=== PATIENT | female | born 1970 | race Caucasian/White ===

== ENCOUNTER 2020-09-12 00:40 | Outpatient (CLI) | payer OTHER, SELFPAY ==
[2020-09-12 18:51] LABS: SARS-CoV-2 RNA PCR Negative
== END 2020-09-12 00:41 | disposition home or self-care (01) ==
LOC: ANHCOVIDDT 00:40
PROVIDERS: PCP Family Medicine Sports Medicine; Visit Provider Internal Medicine Gastroenterology
DX: Z01.812 Encounter for preprocedural laboratory examination (principal); Z20.828 Contact with and (suspected) exposure to other viral communicable diseases
CPT/HCPCS: 87635; C9803; U0003

== ENCOUNTER 2020-09-15 01:13 | Day surgery (SDC) | payer OTHER, SELFPAY ==
[2020-09-07 10:13] VITALS: BMI 24.9
[2020-09-15] MEDS: LACTATED RINGERS 1,000 ML 150 ML IV CONT (09:02)
[2020-09-15 09:04] VITALS: BP 127/79; PULSE 105; RESP 18; TEMP 36.7; O2SAT 100; BMI 25.2
--- NOTE | 2020-09-15 09:36 | WPDANESEPPF ---
Anes - Initial Pre Proc Eval Procedure: Operation Date: 09/15/20 10:00 Proposed Procedures p Screening Colonoscopy - Kobe López MD Date/Time: 09/15/20 09:36 Surgeon: Kobe López MD Pre Op Diagnosis: Neoplasm Screening Patient Data Age: 50 Gender: F Height: 5 ft 5 in Weight: 68.9 kg Last Vital Signs Temp 98.1 F 09/15/20 09:04 Pulse 105 H 09/15/20 09:04 Resp 18 09/15/20 09:04 BP 127/79 09/15/20 09:04 Pulse Ox 100 09/15/20 09:04 Allergies Allergy/AdvReac Type Severity Reaction Status Date / Time erythromycin base Allergy Severe Chest Pain Verified 09/07/20 10:11 Gadolinium-Containing Allergy Intermediate Itching Verified 09/07/20 10:11 Contrast Medi morphine AdvReac Unknown GI UPSET Verified 09/07/20 10:11 ERYTHROMYCIN LACTOBIONATE Allergy Severe CHEST Uncoded 09/07/20 10:11 TIGHTNESS, SOB MRI DYE Allergy Severe ITCHEY, Uncoded 09/07/20 10:11 RASH Home Medications Medication Instructions Recorded Confirmed Type peg 3350-electrolytes 236 240 ml PO Q10M #4000 ml 07/31/20 Rx gram-22.74 gram-6.74 gram-5.86 gram solution amitriptyline 10 mg PO HS 09/07/20 09/07/20 History cholecalciferol (vitamin D3) 10 mcg PO DAILY 09/07/20 09/07/20 History [Vitamin D3] rizatriptan 10 mg PO PRN PRN 09/07/20 09/07/20 History sumatriptan succinate 100 mg PO PRN PRN 09/07/20 09/07/20 History Patient hx anesthesia problems: none Family hx anesthesia problems: none PMFSH Past Medical History Medical History (Updated 09/15/20 @ 09:36 by Edwin Carter MD) Migraine Family History Family History (System 08/07/19 @ 13:32 by Gabrielle Choudhary) Father Diabetes mellitus Mother Diabetes mellitus Social History Social History (System 08/07/19 @ 13:32 by Gabrielle Choudhary) Smoking status: Never smoker Alcohol intake: current Substance use: never Substance use type: does not use Spiritual care concerns: No Anes - Eval Final PreProcedure Day of Procedure 09/15/20 09:36 Patient weight: normal Heart: regular rate and rhythm Lungs: clear to auscultation Airway: Mallampati scale class II Neurological: alert and oriented Last oral intake: >/= 8 hours ASA classification: II Emergent: no Anesthetic plan: proceed Anesthesia type and monitoring: general and standard monitoring Informed Consent: The patient's anesthetic plan and its attendant risks and benefits were discussed with the patient/family/POA. Questions were solicited and answers provided to the satisfaction of the patient/family/POA.
--- NOTE | 2020-09-15 09:45 | PM.HPGS ---
History of Present Illness History of Present Illness Consent: Risks, benefits, and alternatives have been discussed and questions answered. Patient agrees to proceed with procedure. Chief complaint: Neoplasm Screening Narrative: Kaitlin Robbins is a 50 year old female here for first screening colonoscopy. Grandparent and uncle with colon cancer. Review of Systems Constitutional: Constitutional: Denies headache(s) and Denies weakness Eyes: Eyes: Denies blurry vision ENT: Reports Normal hearing present, Denies headache(s) and Denies neck pain Cardiovascular: Cardiovascular: Denies chest pain and Denies dyspnea Respiratory: Respiratory: Denies dyspnea Gastrointestinal: Gastrointestinal: Reports no additional gastrointestinal complaints Genitourinary: Genitourinary: Denies dysuria Musculoskeletal: Musculoskeletal: Denies neck pain Integumentary/Breasts: Skin/Breast: Denies dry skin Neurologic: Reports Normal hearing present, Denies headache(s) and Denies weakness Psychiatric: Psychiatric: Denies anxiety Endocrine: Endocrine: Denies change in body appearance Hematologic/Lymphatic: Hematologic/Lymphatic: Denies easy bleeding Allergic/Immunologic: Allergic/Immunologic: Denies urticaria PMF Past Medical History Medical History (Updated 09/15/20 @ 09:46 by Kobe López MD) Colon cancer screening Migraine Family History Family History (System 08/07/19 @ 13:32 by Gabrielle Choudhary) Father Diabetes mellitus Mother Diabetes mellitus Social History Social History (System 08/07/19 @ 13:32 by Gabrielle Choudhary) Smoking status: Never smoker Alcohol intake: current Substance use: never Substance use type: does not use Spiritual care concerns: No Meds Home Medications and Allergies Home Medications Medication Instructions Recorded Confirmed Type peg 3350-electrolytes 236 240 ml PO Q10M #4000 ml 07/31/20 Rx gram-22.74 gram-6.74 gram-5.86 gram solution amitriptyline 10 mg PO HS 09/07/20 09/07/20 History cholecalciferol (vitamin D3) 10 mcg PO DAILY 09/07/20 09/07/20 History [Vitamin D3] rizatriptan 10 mg PO PRN PRN 09/07/20 09/07/20 History sumatriptan succinate 100 mg PO PRN PRN 09/07/20 09/07/20 History Allergies Allergy/AdvReac Type Severity Reaction Status Date / Time erythromycin base Allergy Severe Chest Pain Verified 09/07/20 10:11 Gadolinium-Containing Allergy Intermediate Itching Verified 09/07/20 10:11 Contrast Medi morphine AdvReac Unknown GI UPSET Verified 09/07/20 10:11 ERYTHROMYCIN LACTOBIONATE Allergy Severe CHEST Uncoded 09/07/20 10:11 TIGHTNESS, SOB MRI DYE Allergy Severe ITCHEY, Uncoded 09/07/20 10:11 RASH Vital Signs Vital Signs - 24 hr 09/15/20 09:04 Temperature 98.1 F Pulse Rate 105 H Respiratory Rate 18 Blood Pressure 127/79 Pulse Oximetry 100 Exam Const: General: comfortable and no acute distress HENMT: General nose exam: Normal nares present Eyes: General: appearance normal, both eyes and all related structures Neck: Neck: no JVD Resp: Auscultation: clear to auscultation bilaterally Cardio: Rate: regular rate Rhythm: regular rhythm GI: Inspection: non-distended GI Palp: Yes Soft to palpation Skin: General skin exam: normal color Neuro: General: gait normal Speech: normal speech Extrem: General: normal to inspection Psych: Mental Status: mental status grossly normal Assessment and Plan Assessment and plan (1) Colon cancer screening: Code(s): Z12.11 - Encounter for screening for malignant neoplasm of colon Status: Acute Assessment and Plan: will proceed with colonoscopy
[2020-09-15 10:11] VITALS: BP 143/78; PULSE 91; RESP 16; O2SAT 98
[2020-09-15 10:21] VITALS: BP 137/84; PULSE 88; RESP 18; O2SAT 99
[2020-09-15 10:31] VITALS: BP 130/79; PULSE 76; RESP 20; O2SAT 100
== END 2020-09-15 10:47 | disposition home or self-care (01) ==
PROVIDERS: PCP Family Medicine Sports Medicine; Visit Provider Internal Medicine Gastroenterology
PROC: 0DJD8ZZ Inspection of Lower Intestinal Tract, Via Natural or Artificial Opening Endoscopic (ICD-10-PCS; CPT 45378; principal; 2020-09-15 10:00)
DX: G43.909 Migraine, unspecified, not intractable, without status migrainosus (principal); Z80.0 Family history of malignant neoplasm of digestive organs; D12.0 Benign neoplasm of cecum; K63.5 Polyp of colon; K64.8 Other hemorrhoids
CPT/HCPCS: 45380; 45385; 87635; 88305; C9803; J2704; J7120; U0003

== ENCOUNTER 2020-10-18 15:05 | Outpatient (CLI) | payer OTHER, SELFPAY ==
--- NOTE | ~2020-10-18 | MM_ITS ---
EXAMINATION: MM screening [facility] BI w barbara HISTORY: Screening TECHNIQUE: Craniocaudal and mediolateral oblique 3-D tomosynthesis images were obtained and synthetic 2-D images were generated. CAD analysis was submitted and interpreted. COMPARISON: Comparison to multiple prior studies sequentially, with oldest reviewed study dated 07/07. BREAST PARENCHYMAL COMPOSITION: The breasts are heterogenously dense, which may obscure small masses. FINDINGS: There is no evidence of suspicious mass, calcification, or architectural distortion to sugg est malignancy in either breast. There has been no suspicious interval change. IMPRESSION: 1. No mammographic evidence of malignancy. 2. Recommend routine screening mammography in one year. BI-RADS Category 1: Negative Reviewed, dictated and finalized at location A. RONMENTAL STUDIES PROGRAM DIRECTOR
== END 2020-10-18 15:06 | disposition home or self-care (01) ==
LOC: ANHIMG 15:08
PROVIDERS: PCP Family Medicine Sports Medicine
DX: Z12.31 Encounter for screening mammogram for malignant neoplasm of breast (principal)
CPT/HCPCS: 77063; 77067

== ENCOUNTER 2021-09-08 23:47 | Emergency (ER) | payer OTHER, SELFPAY ==
--- NOTE | ~2021-09-08 | XR_ITS ---
EXAMINATION: XR chest 1V portable DATE: 09/09/2021 00:05 INDICATION: Sudden onset epigastric pain radiating to the back TECHNIQUE: frontal view of the chest was obtained. COMPARISON: None FINDINGS: The lungs are clear with no focal airspace opacities, pulmonary edema, pleural effusion or pneumothor ax. The cardiomediastinal silhouette is normal. Visualized bones and soft tissues are unremarkable. IMPRESSION: 1. Normal chest radiograph. Reviewed, dictated and finalized at location A. TAL MEDIA ANALYST IMPRESSION: 1. Normal chest radiograph.
[2021-09-08 23:43] VITALS: BP 155/63; PULSE 101; RESP 22; TEMP 35.9; O2SAT 100
[2021-09-08 23:50] VITALS: PULSE 92; RESP 14; O2SAT 100
--- NOTE | 2021-09-08 23:50 | ECG_ITS ---
Measurements Intervals [place] Rate: 95 P: 54 WY: 126 QRS: 52 QRSD: 92 T: -32 QT: 255 QTc: 322 Interpretive Statements SINUS RHYTHM NONSPECIFIC ST & T-WAVE ABNORMALITY- INF/LAT LEADS BASELINE ARTIFACT- I, II, AVR, V3 BORDERLINE ECG Electronically Signed On 09-09-2021 7:07:01 MICA WASHER GLUER by Darnell Sims D.O.
[2021-09-09] VITALS (17 sets, daily range): BP systolic 138–158; BP diastolic 69–89; PULSE 81–100; RESP 14–20; TEMP 36.4; O2SAT 100
[2021-09-09 00:24] LABS: Basophils Percent Auto 0.6 % (0.2-1.2); Eosinophils Absolute Auto 0.3 K/mm3 (0-0.3); Eosinophils Percent Auto 3.6 % (0-4.4); Hematocrit 36.2 % (37.0-47.0); Hemoglobin 13.1 g/dL (12.0-15.0); Immature Granulocyte Absolute 0.02 K/mm3 (0.00-0.031); Immature Granulocyte Percent A 0.3 % (0-0.5); Lymphocytes Absolute Auto 2.47 K/mm3 (0.9-3.2); Lymphocytes Percent Auto 35.9 % (18.3-44.2); Mean Corpuscular HGB Conc 36.2 g/dl (32-36); Mean Corpuscular Volume 91.2 fl (80-100); Mean Platelet Volume 9.3 fl (7.4-10.4); Monocytes Absolute Auto 0.6 K/mm3 (0.1-0.6); Neutrophils Absolute Auto 3.5 K/mm3 (1.3-6.7); Neutrophils Percent Auto 50.6 % (45.5-73.1); Platelet Count Result 290 k/mm3 (150-375); Red Blood Count 3.97 M/mm3 (4.2-5.4); Red Cell Distribution Width 11.5 % (11.5-14.5); White Blood Count 6.9 K/mm3 (4.5-10.0)
[2021-09-09 00:39] LABS: INR 0.9; Prothrombin Time 11.7 Seconds (11.1-14.7)
[2021-09-09 00:42] LABS: Alanine Aminotransferase 63 U/L (4-35); Albumin Level 4.7 g/dL (3.5-5.1); Alkaline Phosphatase 68 U/L (38-126); Anion Gap 9 mmol/L (8-16); Aspartate Amino Transferase 161 U/L (14-36); Bilirubin,Total 0.5 mg/dL (0.2-1.3); Blood Urea Nitrogen 16 mg/dL (7-17); Calcium 9.6 mg/dL (8.4-10.2); Carbon Dioxide 22 mmol/L (22-30); Chloride 103 mmol/L (98-107); Estimated CRCL calculation 75 ml/min; Estimated Glomerular Filt Rate > 60; Glucose 102 mg/dL (65-110); Lipase 118 U/L (23-300); Sodium 134 mmol/L (137-145)
[2021-09-09 00:54] LABS: Troponin I < 0.012 ng/mL (0.000-0.034)
[2021-09-09 00:58] LABS: Beta HCG Quantitative < 2.39 mIU/ML
[2021-09-09] MEDS: SODIUM CHLORIDE 0.9% IV 1,000 ML 999 ML IV CONT (00:59)
[2021-09-09] MEDS: MAG HYDROX/AL HYDROX/SIMETH 30 ML UDC PO (01:00)
[2021-09-09] MEDS: LIDOCAINE HCL 2% VISC SOLN 15 ML UDC 20 ML PO (01:00)
--- NOTE | 2021-09-09 01:02 | ED.CHESTPAIN ---
HPI - Chest Pain General Chief Complaint: Chest Pain Stated Complaint: epigastric pain Time Seen by Provider: 09/09/21 00:17 Source: patient History of Present Illness HPI narrative: Patient presents with epigastric pain. Patient reports she went to bed around 10:00 woke up around 11 with a sharp stabbing pain in her epigastric area. The pain was constant there are no clear aggravating or alleviating factors there is no radiation. Given the intensity she called EMS and came to the ER for evaluation. On arrival to the ER reports her symptoms are improving. She denies have to take any medications at home to alleviate her symptoms. Neeta primary concern is that her family has a significant cardiac history. She denies any signet past medical history she denies any smoking denies any recent hospitalizations denies any prior history of thrombus. She denies any nausea vomiting or diaphoresis. The pain is gone away she feels like her stomach is unsettled Related Data Home Medications Medication Instructions Recorded Confirmed amitriptyline 10 mg PO HS 09/07/20 09/07/20 cholecalciferol (vitamin D3) 10 mcg PO DAILY 09/07/20 09/07/20 [Vitamin D3] rizatriptan 10 mg PO PRN PRN 09/07/20 09/07/20 sumatriptan succinate 100 mg PO PRN PRN 09/07/20 09/07/20 Allergies Allergy/AdvReac Type Severity Reaction Status Date / Time erythromycin base Allergy Severe Chest Pain Verified 09/08/21 23:48 Gadolinium-Containing Allergy Intermediate Itching Verified 09/08/21 23:48 Contrast Medi morphine AdvReac Unknown GI UPSET Verified 09/08/21 23:48 ERYTHROMYCIN LACTOBIONATE Allergy Severe CHEST Uncoded 09/07/20 10:11 TIGHTNESS, SOB MRI DYE Allergy Severe ITCHEY, Uncoded 09/07/20 10:11 RASH Review of Systems Review of Systems: CONSTITUTIONAL: Denies fever, chills, or sweats. EYES: Denies visual changes, redness, or discharge. ENT: Denies rhinorrhea, congestion, sore throat, or otalgia. CARDIOVASCULAR: Denies palpitations, or edema. RESPIRATORY: Denies cough or dyspnea. GASTROINTESTINAL: Denies nausea, vomiting, or diarrhea. GENITOURINARY: Denies dysuria or hematuria. SKIN: Denies rash or itching. MUSCULOSKELETAL: Denies back pain, joint pain, or myalgia. NEUROLOGIC: Denies headache, numbness, dizziness, or weakness. PSYCHIATRIC: Denies anxiety or depression. [facility] Past Medical History Medical History Colon cancer screening Migraine Family History Family History Father Diabetes mellitus Mother Diabetes mellitus Social History Social History Smoking status: Never smoker Alcohol intake: current Substance use: never Substance use type: does not use Spiritual care concerns: No Exam Narrative: GENERAL: Well-appearing, well-nourished, and in no acute distress. HEAD: Normocephalic, atraumatic. EYES: PERRLA and EOMI. ENT: Nares clear, no rhinorrhea or epistaxis. Mucous membranes moist. NECK: Supple. No masses. No JVD CHEST: Clear to auscultation. No respiratory distress. No wheezes rales or rhonchi HEART: Regular rate and rhythm. No murmur heard. Normal peripheral pulses. ABDOMEN: Soft, nontender, nondistended, normal active bowel sounds. EXTREMITIES: Normal range of motion. No edema. SKIN: Warm, dry, no rash. NEURO: No focal deficits. Alert and oriented x3. PSYCH: Normal mood and affect. Course Reevaluation(s) Reevaluation #1: Patient reports large improvement in symptoms after GI cocktail. Results and plan reviewed with patient. Patient comfortable with outpatient plan. Date: 09/09/21 Time: 03:45 Vital Signs Vital signs: Vital Signs Temperature 35.9 C L 09/08/21 23:43 Pulse Rate 101 H 09/08/21 23:43 Respiratory Rate 22 H 09/08/21 23:43 Blood Pressure 155/63 H 09/08/21 23:43 Pulse Oximetry 100 09/08/21 23:43 [place]
[2021-09-09] MEDS: POTASSIUM CHLORIDE 20 MEQ PACKET (FOR LIQUID) 40 MEQ PO (01:30)
--- NOTE | 2021-09-09 01:34 | PC.NURSE ---
Patient states relief of pain with GI cocktail.
[2021-09-09 03:16] LABS: Troponin I < 0.012 ng/mL (0.000-0.034)
== END 2021-09-09 04:05 | disposition home or self-care (01) ==
PROVIDERS: General Practice; Emergency Provider Emergency Medicine; PCP Family Medicine Sports Medicine
DX: R10.13 Epigastric pain (principal); R94.31 Abnormal electrocardiogram [ECG] [EKG]
CPT/HCPCS: 36415; 71045; 80053; 81025; 83690; 84484; 84702; 85025; 85610; 85730; 93005; 96360; 99284; A9270; J7030

== ENCOUNTER 2021-11-07 12:10 | Outpatient (CLI) | payer OTHER, SELFPAY ==
--- NOTE | ~2021-11-07 | MM_ITS ---
EXAMINATION: MM screening [facility] BI w barbara HISTORY: Screening mammogram TECHNIQUE: Craniocaudal and mediolateral oblique 3-D tomosynthesis images were obtained and synthetic 2-D images were generated. CAD analysis was submitted and interpreted. COMPARISON: 10/18/2020, 09/21/2019, 09/08/2018 BREAST PARENCHYMAL COMPOSITION: The breasts are extremely dense, which lowers the sensitivity of mamm ography. FINDINGS: There is no evidence of suspicious mass, calcification, or architectural distortion to sugg est malignancy in either breast. There has been no suspicious interval change. IMPRESSION: 1. No mammographic evidence of malignancy. 2. Recommend routine screening mammography in one year. BI-RADS Category 1: Negative Reviewed, dictated and finalized at location A. AL SCHEDULING COORDINATOR
== END 2021-11-07 12:11 | disposition home or self-care (01) ==
PROVIDERS: PCP Family Medicine Sports Medicine
DX: Z12.31 Encounter for screening mammogram for malignant neoplasm of breast (principal)
CPT/HCPCS: 77063; 77067

== ENCOUNTER 2023-01-22 15:38 | Outpatient (CLI) | payer OTHER, SELFPAY ==
--- NOTE | ~2023-01-22 | MM_ITS ---
EXAMINATION: MM screening [facility] BI w barbara HISTORY: Screening mammogram TECHNIQUE: Craniocaudal and mediolateral oblique 3-D tomosynthesis images were obtained and synthetic 2-D images were generated. CAD analysis was submitted and interpreted. COMPARISON: 11/07/2021, 10/18/2020, 09/21/2019 BREAST PARENCHYMAL COMPOSITION:The breasts are heterogeneously dense, which may obscure small masses. FINDINGS: No suspicious mass, calcification, or architectural distortion are identified in either marion ast to suggest malignancy. There has been no suspicious interval change. IMPRESSION: No mammographic evidence of malignancy. Recommend routine screening mammography in one year. BI-RADS Category 1: Negative Reviewed, dictated and finalized at location .
== END 2023-01-22 15:39 | disposition home or self-care (01) ==
LOC: ANHIMG 15:39
PROVIDERS: PCP Family Medicine Sports Medicine; Visit Provider Obstetrics & Gynecology
DX: Z12.31 Encounter for screening mammogram for malignant neoplasm of breast (principal)
CPT/HCPCS: 77063; 77067

== ENCOUNTER 2024-03-16 08:52 | Outpatient (CLI) | payer OTHER, SELFPAY ==
--- NOTE | ~2024-03-16 | MM_ITS ---
EXAMINATION: MM screening [facility] w barbara HISTORY: Screening TECHNIQUE: Craniocaudal and mediolateral oblique 3-D tomosynthesis images were obtained and synthetic 2-D images were generated. CAD analysis was submitted and interpreted. COMPARISON: Comparison to multiple prior studies sequentially, with oldest reviewed study dated 08/08. BREAST PARENCHYMAL COMPOSITION: Dense: The breasts are extremely dense, which lowers the sensitivity of mammography. FINDINGS: There is no evidence of suspicious mass, calcification, or architectural distortion to sugg est malignancy in either breast. There has been no suspicious interval change. IMPRESSION: 1. No mammographic evidence of malignancy. 2. Recommend routine screening mammography in one year. BI-RADS Category 1: Negative Reviewed, dictated and finalized at location B.
== END 2024-03-16 08:53 | disposition home or self-care (01) ==
PROVIDERS: PCP Family Medicine Sports Medicine; Visit Provider Obstetrics & Gynecology
DX: Z12.31 Encounter for screening mammogram for malignant neoplasm of breast (principal)
CPT/HCPCS: 77063; 77067

== ENCOUNTER 2025-04-20 09:41 | Outpatient (CLI) | payer OTHER, SELFPAY ==
--- NOTE | ~2025-04-20 | MM_ITS ---
EXAMINATION: MM screening [facility] BI w barbara HISTORY: Screening TECHNIQUE: Craniocaudal and mediolateral oblique 3-D tomosynthesis images were obtained and synthetic 2-D images were generated. CAD analysis was submitted and interpreted. COMPARISON: Comparison to multiple prior studies sequentially, with oldest reviewed study dated 01/2018. BREAST PARENCHYMAL COMPOSITION: Dense: The breasts are extremely dense, which lowers the sensitivity of mammography. FINDINGS: There is no evidence of suspicious mass, calcification, or architectural distortion to sugg est malignancy in either breast. There has been no suspicious interval change. IMPRESSION: 1. No mammographic evidence of malignancy. 2. Recommend routine screening mammography in one year. BI-RADS Category 1: Negative Reviewed, dictated and finalized at location B.
== END 2025-04-20 09:42 | disposition home or self-care (01) ==
LOC: ANHIMG 09:46
PROVIDERS: PCP Family Medicine; Visit Provider Obstetrics & Gynecology
DX: Z12.31 Encounter for screening mammogram for malignant neoplasm of breast (principal)
CPT/HCPCS: 77063; 77067

== ENCOUNTER 2025-09-05 14:30 | Outpatient (CLI) | payer OTHER, SELFPAY ==
--- OUTSIDE RECORDS SUMMARY | 2025-09-05 15:27 | XMS_ITS | Clinical Summary ---
Author Organization [facility] Address [address] [place] [address] Care Team Providers Care Farm Equipment Mechanic Name Role Phone Sharif Campos MD Primary Care Provider [phone] Source Comments [facility],non-owned Affiliates and Associated Physician Practices is amultiple site organization consisting of ambulatory clinics and hospital sitesin [place], [place], [place] and [place]. This disclosure is being madepursuant to the Care Everywhere program and may not contain all information available regarding this patient. Last updated 18.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 Gender Identity Not on file Sexual Orientation Not on file Plan of Treatment Health Maintenance Due Date Last Done Comments COLOGUARD (AGES 45-75) - COL ON CA SCREENING 1972 COLON MONITORING 1972 COLONOSCOPY - COLON CA SCREENING 1972 CT COLONOGRAPHY - COLON CA SCREENING 1972 Colorectal Cancer Screening 1972 FIT - COLON CA SCREENING 1972 FLEX SIG - COLON CA SCREENING 1972 LIPID TESTING 1972 MAMMOGRAM 1972 HIV SCREENING 1987 HEPATITIS C SCREENING 05/02/1990 DTAP/TDAP/TD VACCINES (1 - Tdap) 1991 HEPATITIS B VACCINE (1 of 3 - 19+ 3-dose series) 1991 Cervical Cancer Screening 1993 PAP SMEAR 1993 PAP with HPV 2002 PNEUMOCOCCAL VACCINE 50+ (1 of 1 - PCV) 2022 ZOSTER VACCINE (1 of 2) 2022 DEPRESSION SCREENING 10/06/2024 COVID-19 VACCINE (1 - 2024-2 6 season) 2025 INFLUENZA VACCINE (#1) 2025 HIB VACCINE Aged Out No longer eligi ble based on patient's age to complete this topic HPV VACCINE Aged Out No longer eligi ble based on patient's age to complete this topic MENINGOCOCCAL (Group B) VACC INE SHARED DECISION-MAKING Aged Out No longer eligibl e based on patient's age to complete this topic MENINGOCOCCAL GROUPS A/C/Y/W VACCINE Aged Out No longer eligible b ased on patient's age to complete this topic Insurance [address]YLE SMITH, [facility] [facility] Care Teams Farm Equipment Mechanic Relationship Specialty Start Date End Date Sharif Campos MD [facility] [place] [address] PCP - General 08/09/19
--- OUTSIDE RECORDS SUMMARY | 2025-09-05 15:27 | XMS_ITS | Encounter Summary ---
Author Organization [facility] Address [address] [place] [address] Care Team Providers Care Passenger Brakeman Name Role Phone Sharif Campos MD Primary Care Provider [phone] Encounter Details Date Type Department Care Team (Late st Contact Info) Description 06/25/2023 Lab Requisition [facility] - Derm[facility] Lab [address] [place] [id number] Sabina Simmons MD [address] [facility] [place] [address] Social History Tobacco Use Types Packs/Day Years Used Date Smoking Tobacco: Never Assessed Comments Unknown Sex and Gender Information Value Date Recorded Sex Assigned at Not on file 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 Gender Identity Not on file Sexual Orientation Not on file documented as of this encounter Plan of Treatment Not on file documented as of this encounter Procedures Procedure Name Priority Date/Time Associated Diagnosis Comments DERMATOPATHOLOGY Routine 06/25/2023 3:32 PM CDT documented in this encounter Results * DERMATOPATHOLOGY (06/25/2023 3:32 PM CDT) Case Report Dermatopathology Report Case: [id number] Authorizing Provider: Sabina Simmons MD Collected: 06/25/2023 03:32 PM Ordering Location: [facility] Received: 06/26/2023 12:57 PM Pathologist: Miriam Bassett MD Specimen: Skin, left thigh 09/25/202 3 1:12 PM CDT DERMATOPATHOLOGY LABORATORY Final Diagnosis Specimen A. SKIN, left thigh: PROMINENT BASILAR PIGMENTATION CONSISTENT WITH SOLAR LENTIGO (L81.4) 3 1:12 PM CDT DERMATOPATHOLOGY LABORATORY at 1312 CDT Clinical History R/O Melanoma, SK. Irregular Border Brown Papule 3 1:12 PM CDT DERMATOPATHOLOGY LABORATORY Gross Description Specimen A: Received is one formalin filled container labeled with the patient's name and designated left thigh. The specimen consists of a shave biopsy measuring 6x4x1 mm. Jar 0. 3 1:12 PM CDT DERMATOPATHOLOGY LABORATORY Microscopic Description Specimen A. SKIN, left thigh: Sections show prominent pigmentation of the basal layer without a prominent increase in melanocytes. Some of the basilar keratinocytes are slightly enlarged but uniform. The rete ridges are not elongated. 3 1:12 PM CDT DERMATOPATHOLOGY LABORATORY Disclaimer An external and internal positive and negative controls are appropriate for the histochemical, immunohistochemical and immunofluorescence stain(s) in this case (if any), except where stated explicitly. The performance characteristics of the stain(s) cited in this report were developed and its performance characteristic determined by the Dermatopathology Laboratory at [facility], directed by Dr. Teresa Doshi. These tests need not be, and therefore are not, approved by the [place] Food and Drug Administration. The tests are used for clinical purposes. Billing Codes Specimen Charges Stain Charges 70752 1 3 1:12 PM CDT DERMATOPATHOLOGY LABORATORY Embedded Images 3 1:12 PM CDT DERMATOPATHOLOGY LABORATORY Pathology/Cytolo gy TISSUE SPECIMEN FROM SKIN / Unknown 06/25/2023 3:32 PM CDT 06/26/2023 12:57 PM CDT us Sabina Simmons MD LAB - PATHOLOGY/CYTOLOGY ORD ERABLES Final Result DERMATOPATHOLOGY LABORATORY [facility] - Department of Dermatology [address], [address] [phone] documented in this encounter Visit Diagnoses Not on filedocumented in this encounter Care Teams Passenger Brakeman Relationship Specialty Start Date End Date Sharif Campos MD [address] [place] [address] PCP - General 08/09/19 documented as of this encounter
--- OUTSIDE RECORDS SUMMARY | 2025-09-05 15:28 | XMS_ITS | Encounter Summary ---
Author Organization [facility] Address [address] [place] [address] Care Team Providers Care Senior Loss Control Specialist Name Role Phone Sharif Campos MD Primary Care Provider [phone] Encounter Details Date Type Department Care Team (Late st Contact Info) Description 08/02/2020 Lab Requisition [facility] DermPath Lab [address] [place] [address] Sabina Simmons MD [address] [place] [address] Social History Tobacco Use Types Packs/Day Years Used Date Smoking Tobacco: Never Assessed Comments Unknown Sex and Gender Information Value Date Recorded Sex Assigned at Not on file Legal Sex Female 4:05 AM [employer] Gender Identity Not on file Sexual Orientation Not on file documented as of this encounter Plan of Treatment Not on file documented as of this encounter Procedures Procedure Name Priority Date/Time Associated Diagnosis Comments DERMATOPATHOLOGY Routine 08/02/2020 12:0 0 AM CDT documented in this encounter Results * DERMATOPATHOLOGY (08/02/2020 12:00 AM CDT) Case Report Dermatopathology Report Case: [id number] Authorizing Provider: Sabina Simmons MD Collected: 08/02/2020 12:00 AM Ordering Location: [facility] Care DermPath Lab Received: 08/02/2020 10:46 AM Pathologist: Ariela Hopson MD Specimen: Skin, right chest 0 2:15 PM CDT DERMATOPATHOLOGY LABORATORY Final Diagnosis Specimen A. SKIN, right chest: SQUAMOUS CELL CARCINOMA IN SITU, PRESENT AT THE BASE OF THE SPECIMEN (D04.5) (see microscopic description and comment) 0 2:15 PM CDT DERMATOPATHOLOGY LABORATORY at 1415 CDT Clinical History [place] papule; HAK vs SCC. 0 2:15 PM CDT DERMATOPATHOLOGY LABORATORY Gross Description Specimen A: Received is one formalin filled container labeled with the patient's name and designated right chest. The specimen consists of a shave measuring [id number]. Jar 0. 0 2:15 PM CDT DERMATOPATHOLOGY LABORATORY Microscopic Description Specimen A. SKIN, right chest: The epidermis shows parakeratosis, full thickness disorderly maturation of keratinocytes, mitoses at different levels, and dyskeratotic cells. The lesion extends to the base of the biopsy. COMMENT: An invasive squamous cell carcinoma cannot be ruled out. 0 2:15 PM CDT DERMATOPATHOLOGY LABORATORY Disclaimer An external and internal positive and negative controls are appropriate for the histochemical, immunohistochemical and immunofluorescence stain(s) in this case (if any), except where stated explicitly. The performance characteristics of the stain(s) cited in this report were developed and its performance characteristic determined by the Dermatopathology Laboratory at [facility], directed by Dr. Teresa Doshi. These tests need not be, and therefore are not, approved by the [place] Food and Drug Administration. The tests are used for clinical purposes. Billing Codes Specimen Charges Stain Charges 83608 1 0 2:15 PM CDT DERMATOPATHOLOGY LABORATORY Embedded Images 0 2:15 PM CDT DERMATOPATHOLOGY LABORATORY Pathology/Cytolog y TISSUE SPECIMEN FROM SKIN / Unknown 08/02/2020 08/02/2020 10:46 AM CDT us Sabina Simmons MD LAB - PATHOLOGY/CYTOLOGY ORD ERABLES Final Result DERMATOPATHOLOGY LABORATORY [facility] Department of Dermatology [address], [address] [phone] documented in this encounter Visit Diagnoses Not on filedocumented in this encounter Care Teams Senior Loss Control Specialist Relationship Specialty Start Date End Date Sharif Campos MD [address] [place] [address] PCP - General 08/09/19 documented as of this encounter
== END 2025-09-05 14:31 | disposition home or self-care (01) ==
LOC: ANHAUDIO 14:30
PROVIDERS: PCP Family Medicine; Visit Provider Otolaryngology
DX: H69.90 Unspecified Eustachian tube disorder, unspecified ear (principal); H90.3 Sensorineural hearing loss, bilateral
CPT/HCPCS: 92557; 92567